=== PATIENT | female | born 2000 | race American Indian/Alaskan Native ===

== ENCOUNTER 2020-07-21 14:38 | Emergency (ER) | payer MEDICAID ==
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
[2020-07-21 17:21] LABS: Basophils % (Auto) 0.2 % (0.0-1.8); Eosinophils # (Auto) 0.1 K/mm3 (0.0-0.4); Eosinophils % (Auto) 0.9 % (0.0-4.3); Hematocrit 36.6 % (30.3-42.9); Hemoglobin 12.3 gm/dl (10.1-14.3); Lymphocytes # (Auto) 1.9 K/mm3 (1.2-5.4); Lymphocytes % (Auto) 22.9 % (13.4-35.0); Mean Corpuscular HGB Conc 34 % (30-34); Mean Corpuscular Volume 89 fl (79-97); Monocytes # (Auto) 0.6 K/mm3 (0.0-0.8); Monocytes % (Auto) 7.2 % (0.0-7.3); Platelet Count 294 K/mm3 (140-440); Red Blood Count 4.12 M/mm3 (3.65-5.03); Red Cell Distribution Width 14.9 % (13.2-15.2)
[2020-07-21 17:35] LABS: INR 0.91 (0.87-1.13)
[2020-07-21 17:36] LABS: Partial Thromboplastin Time 30.9 Sec. (24.2-36.6)
[2020-07-21 17:45] LABS: Alanine Aminotransferase 12 units/L (7-56); Albumin 3.7 g/dL (3.9-5); Blood Urea Nitrogen 7 mg/dL (7-17); Calcium 9.5 mg/dL (8.4-10.2); Hemolysis Index 1
[2020-07-21 17:48] LABS: Bacteria,Urine 1+ /HPF (Negative); Bilirubin,Urine NEG (Negative); Blood,Urine NEG (Negative); Color,Urine Yellow (Yellow); Mucus,Urine 3+ /HPF; Urobilinogen,Urine < 2.0 mg/dL (<2.0)
[2020-07-21 17:49] LABS: WBC,Urine > 182.0 /HPF (0.0-6.0)
[2020-07-21 17:56] LABS: BUN/Creatinine Ratio 12
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
[2020-07-21 23:42] VITALS: BP 112/67
== END 2020-07-21 23:44 | disposition home or self-care (01) ==
LOC: ED 14:38
DX: O20.0 Threatened abortion (principal); O23.41 Unspecified infection of urinary tract in pregnancy, first trimester; S06.0X9A Concussion with loss of consciousness of unspecified duration, initial encounter; Z3A.08 8 weeks gestation of pregnancy; Z79.899 Other long term (current) drug therapy; Y04.2XXA Assault by strike against or bumped into by another person, initial encounter; Y93.89 Activity, other specified; Y92.89 Other specified places as the place of occurrence of the external cause; Y99.8 Other external cause status
CPT/HCPCS: 36415; 70450; 76801; 80053; 81001; 83735; 84702; 85025; 85610; 85730; 86900; 86901